=== PATIENT | female | born 1985 | race Hispanic/Latino ===

== ENCOUNTER 2021-02-26 05:38 | Day surgery (SDC) | payer OTHER ==
[2021-02-25 13:05] LABS: BASOPHILS % (AUTO) 0.8 % (0.0-5.0); EOSINOPHILS % (AUTO) 2.1 % (0.0-8.0); HEMATOCRIT 39.3 % (36-48); LYMPHOCYTES % (AUTO) 29.2 % (21.0-51.0); MEAN CORPUSCULAR HEMOGLOBIN 27.5 pg (27.0-33.0); MEAN CORPUSCULAR HGB CONC 32.6 g/dL (32.0-36.0); MEAN CORPUSCULAR VOLUME 84.3 fL (79-99); NEUTROPHILS % (AUTO) 62.4 % (40.0-77.0); PLATELET COUNT (AUTO) 328 K/uL (130-400); RED BLOOD CELL COUNT(AUTO) 4.66 MIL/uL (4.00-5.50); WHITE BLOOD COUNT (AUTO) 6.6 K/uL (4.8-10.8)
[2021-02-25 13:24] VITALS: BP 140/81
[~2021-02-26] VITALS: Ht 160 cm; Wt 82.6 kg
[2021-02-26] VITALS (17 sets, daily range): BP systolic 124–150; BP diastolic 65–91
[~2021-02-26 05:38] MED LIST: LACTATED RINGERS 1000ML 1,000 ML IV SCH; OMEP20CA12 PO
[2021-02-26] MEDS ORDERED: LIDOCAINE PF 100MG/5ML (2%) SYRINGE 5ML ONE (06:58)
[2021-02-26] MEDS ORDERED: NEOSTIGMINE 5MG/5ML SYR IV ONE (06:58)
[2021-02-26] MEDS ORDERED: FENTANYL CITRATE PF 50 MCG/1 ML 2ML VIAL ONE (06:58)
[2021-02-26] MEDS ORDERED: GLYCOPYRROLATE 1 MG/5 ML SYRINGE ONE (06:58)
[2021-02-26] MEDS ORDERED: MIDAZOLAM HCL 1 MG/ML 2ML VIAL ONE (06:58)
[2021-02-26] MEDS ORDERED: DEXAMETHASONE SOD PHOSPHATE 10MG/ML 1ML VIAL ONE (06:58)
[2021-02-26] MEDS ORDERED: SUCCINYLCHOLINE CHLORIDE 20 MG/ML 10 ML VIAL ONE (06:58)
[2021-02-26] MEDS ORDERED: ONDANSETRON 4MG INJ ONE (06:58)
[2021-02-26] MEDS ORDERED: PROPOFOL 10 MG/ML 20ML VIAL IV ONE (06:58)
[2021-02-26] MEDS ORDERED: ROCURONIUM 10MG/1ML SYR 10 MG/ML ML ONE (06:59)
[2021-02-26] MEDS ORDERED: MEPERIDINE-PF 25 MG/ML SYG ONE ×2 (07:57→08:08)
[2021-02-26] MEDS ORDERED: CEFAZOLIN SODIUM 1 GM VIAL ONE (09:22)
[2021-02-26] MEDS ORDERED: LIDOCAINE HCL 1% 20 ML VIAL ONE (09:22)
[2021-02-26] MEDS ORDERED: BUPIVACAINE/PF 0.25% 30ML VIAL IJ ONE (09:22)
== END 2021-02-26 09:30 | disposition home or self-care (01) ==
LOC: DAH 05:38
PROVIDERS: ATTEND Obstetrics & Gynecology
DX: Z30.2 Encounter for sterilization (principal); Z20.822 Contact with and (suspected) exposure to COVID-19; K21.9 Gastro-esophageal reflux disease without esophagitis; Z79.899 Other long term (current) drug therapy
CPT/HCPCS: 36415; 58670; 84703; 85025; 86850; 86900; 86901; 87635; A4215 ×2; A4221; A4222; A4223; A4351; A4452; A4510; A4600; A4606; A4663; A6260; C1769 ×2; C9803; J0330; J1100; J2001; J2175 ×2; J2250; J2405; J2704; J2710; J3010; J3490; J7120; J0690

== ENCOUNTER → 2022-02-04 | Outpatient (CLI) | payer OTHER ==
[~2022-02-04] MED LIST changes: -LACTATED RINGERS 1000ML 1,000 ML IV SCH
== END | disposition home or self-care (01) ==
LOC: RAH 15:27
PROVIDERS: ATTEND Internal Medicine
DX: G44.321 Chronic post-traumatic headache, intractable (principal)
CPT/HCPCS: 70450